=== PATIENT | female | born 1935 | race Caucasian/White ===

== ENCOUNTER 2016-09-04 21:13 | Inpatient (IN) | payer MEDICARE, BC ==
[~2016-09-04 21:13] MED LIST: ADULT ASPIRIN81 MG PO; ALIGN4 MG PO; BUTRANS1 EAC1 TD; CALCIUM PO; EFFEXOR75 M1 PO; ERGOCALCIF50000 UNI1 PO; EVISTA60 MG PO; FOLIC ACID1 MG PO; IMITREX50 M1 PO; K-DUR20 MEQ/TA1 PO; LEVOTHYROXINE50 MCG PO; MAG PO; MOBIC7.5 M1 PO; NORCO 5/3251 TA1 PO; PRILOSEC OTC20 M1 PO; SEROQUEL25 M1 PO; SLOW RELEASE I140 MG PO; TOPROL XL100 MG PO; TRANXENE T PO; TYLENOL325 M1 PO; VESICARE5 MG PO; [UNRECOGNIZED DRUG - OTHER] PO; [UNRECOGNIZED DRUG - OTHER] PO
[2016-09-04] MEDS ORDERED: REMERON15 M1 PO (22:34)
[2016-09-04] MEDS ORDERED: XARELTO20 M1 PO (22:35)
[2016-09-04] MEDS ORDERED: PREDNISONE10 M1 PO (22:36)
[2016-09-04] MEDS ORDERED: TOVIAZ8 M1 PO (22:36)
[2016-09-04] MEDS ORDERED: NAMENDA10 M1 PO (22:37)
[2016-09-04] MEDS ORDERED: MULTI VITAMIN1 EAC2 PO (22:37)
[2016-09-04] MEDS ORDERED: BUTRANS1 EAC3 TP (22:39)
[2016-09-05 02:42] LABS: BASO % 0.1 % (0-2); EOS % 0.9 % (0-7); EOSINOPHIL ABSOLUTE COUNT 0.2 tho/cmm (0.0-0.7); HCT-HEMATOCRIT 41.8 % (34.0-49.0); IMMATURE GRANULOCYTES PERCENT 0.6 % (0-0.3); LYMPH % 7.2 % (20-45); LYMPH ABSOLUTE COUNT 1.2 tho/cmm (0.8-4.5); MCH (MEAN CORPUSCULAR HGB) 32.8 pg (28.0-32.0); MCHC MEAN CORPUSCULAR HGB CONC 33.5 % (32.0-36.0); MCV (MEAN CELL VOLUME) 97.9 fl (82.0-96.0); MEAN PLATELET VOLUME 9.1 cmc (9.4-12.4); MONOCYTE ABSOLUTE COUNT 0.7 tho/cmm (0.0-1.2); NEUTROPHILS % 87.2 % (40-80); PLATELET COUNT 205 tho/cmm (150-450); RED BLOOD COUNT 4.27 mil/cmm (4.00-5.20); RED CELL DISTRIBUTION WIDTH 13.5 % (12.4-16.4); WHITE BLOOD COUNT 17.2 tho/cmm (4.0-10.0)
[2016-09-05 02:46] LABS: INR 0.9 INR (0.9-1.1); PROTHROMBIN TIME 10.5 SECONDS (9.0-13.6)
[2016-09-05 02:53] LABS: ANION GAP 13 mmol/L (0-20); BLOOD UREA NITROGEN 15 mg/dl (6-24); CALCIUM 8.3 mg/dl (8.5-10.5); CARBON DIOXIDE-VENOUS 26 mmol/L (22-32); CHLORIDE 107 mmol/l (96-110); CREATININE 0.88 mg/dl (0.50-1.10); GLUCOSE 115 mg/dL (70-110); POTASSIUM 3.8 mmol/L (3.7-5.1); SODIUM 142 mmol/L (135-145); eGFR VALUE FOR BLACK 70 mL/Min
[2016-09-06 05:24] LABS: BASO % 0.2 % (0-2); EOS % 2.2 % (0-7); EOSINOPHIL ABSOLUTE COUNT 0.3 tho/cmm (0.0-0.7); HGB-HEMOGLOBIN 11.5 gm/dl (12.0-15.5); IMMATURE GRANULOCYTES ABSOLUTE 0.08 tho/cmm (0-0.03); IMMATURE GRANULOCYTES PERCENT 0.6 % (0-0.3); LYMPH % 12.1 % (20-45); LYMPH ABSOLUTE COUNT 1.6 tho/cmm (0.8-4.5); MCH (MEAN CORPUSCULAR HGB) 32.2 pg (28.0-32.0); MCHC MEAN CORPUSCULAR HGB CONC 32.9 % (32.0-36.0); MEAN PLATELET VOLUME 9.4 cmc (9.4-12.4); MONO % 4.5 % (0-12); MONOCYTE ABSOLUTE COUNT 0.6 tho/cmm (0.0-1.2); NEUTROPHIL ABSOLUTE COUNT 10.4 tho/cmm (1.6-8.0); NEUTROPHIL-AUTOMATED 10.4 tho/cmm (1.6-8.0); NEUTROPHILS % 80.4 % (40-80); PLATELET COUNT 177 tho/cmm (150-450); RED BLOOD COUNT 3.57 mil/cmm (4.00-5.20); RED CELL DISTRIBUTION WIDTH 13.8 % (12.4-16.4); WHITE BLOOD COUNT 12.9 tho/cmm (4.0-10.0)
[2016-09-07 12:10] LABS: ANION GAP 14 mmol/L (0-20); BLOOD UREA NITROGEN 13 mg/dl (6-24); CALCIUM 7.4 mg/dl (8.5-10.5); CARBON DIOXIDE-VENOUS 21 mmol/L (22-32); CHLORIDE 110 mmol/l (96-110); CREATININE 0.75 mg/dl (0.50-1.10); GLUCOSE 107 mg/dL (70-110); POTASSIUM 4.3 mmol/L (3.7-5.1); SODIUM 141 mmol/L (135-145); eGFR VALUE FOR BLACK 85 mL/Min
[2016-09-08] MEDS ORDERED: VIBRAMYCIN100 M1 PO (11:38)
--- NOTE | 2016-09-08 18:03 | NUR ---
2909- DR PADRON PAGED AND DISCUSSED WITH HIS NURSE THAT PT WOULD NOT BE LEAVING TODAY. DR WILKINSON ALSO PAGED AT THIS TIME.
[2016-09-08 20:25] LABS: URINE BILIRUBIN NEGATIVE (NEG); URINE BLOOD NEGATIVE (NEG); URINE GLUCOSE (UA) NEGATIVE (NEG); URINE KETONE NEGATIVE (NEG); URINE LEUKOCYTE ESTERASE NEGATIVE (NEG); URINE NITRITE NEGATIVE (NEG); URINE PROTEIN NEGATIVE (NEG)
[2016-09-08 20:29] LABS: URINE APPEARANCE CLEAR; URINE COLOR YELLOW
== END 2016-09-09 10:09 | DRG 470 ==
LOC: 5EB 21:13 → ORE 09-05 10:48 → PACU 09-05 12:34 → 5EB 09-05 13:45
PROVIDERS: Family Medicine; Orthopaedic Surgery Orthopaedic Surgery of the Spine; ADMIT Hospitalist
PROC: 0SRS0J9 Replacement of Left Hip Joint, Femoral Surface with Synthetic Substitute, Cemented, Open Approach (ICD-10-PCS; principal; 2016-09-05)
DX: S72.012A Unspecified intracapsular fracture of left femur, initial encounter for closed fracture (principal); F03.90 Unspecified dementia, unspecified severity, without behavioral disturbance, psychotic disturbance, mood disturbance, and anxiety; I48.91 Unspecified atrial fibrillation; K86.81 Exocrine pancreatic insufficiency; E03.9 Hypothyroidism, unspecified; I10 Essential (primary) hypertension; K90.0 Celiac disease; G43.909 Migraine, unspecified, not intractable, without status migrainosus; K21.9 Gastro-esophageal reflux disease without esophagitis; D50.9 Iron deficiency anemia, unspecified; W01.10XA Fall on same level from slipping, tripping and stumbling with subsequent striking against unspecified object, initial encounter; J31.0 Chronic rhinitis; I25.10 Atherosclerotic heart disease of native coronary artery without angina pectoris; Z79.01 Long term (current) use of anticoagulants; Z79.82 Long term (current) use of aspirin; Z88.0 Allergy status to penicillin; Z88.2 Allergy status to sulfonamides; Z91.040 Latex allergy status; Z90.49 Acquired absence of other specified parts of digestive tract
CPT/HCPCS: C1713; C1751; J0171; J1170; J1885; J2270; J2795; J7040; J7050